=== PATIENT | female | born 1980 | race Caucasian/White ===

== ENCOUNTER 2016-06-11 05:35 | Day surgery (SDC) | payer OTHER ==
[~2016-06-11] VITALS: Ht 162.6 cm; Wt 139.7 kg
[~2016-06-11 05:35] MED LIST: DESYREL100 MG PO; EXCEDRIN EXTRA1 EACH PO; FERROUS SULFAT325 MG PO; IBUPROFEN800 MG PO; LAMICTAL25 MG PO; MEDROXYPROGESTER5 MG PO; MOTRIN600 MG PO; NOHOMEMEDS; REGLAN10 MG PO; VICODIN HP TAB1 EACH PO; celeXA PO
[2016-06-11 06:24] VITALS: BP 149/79
[2016-06-11] MEDS ORDERED: ENDOCET 5-3251 EACH PO (09:48)
[2016-06-11] MEDS ORDERED: IBUPROFEN800 MG PO (09:48)
[2016-06-11 11:21] VITALS: BP 158/81
[2016-06-11 12:25] VITALS: BP 138/82
[2016-06-11 13:18] VITALS: BP 151/86
== END 2016-06-11 13:47 | disposition home or self-care (01) ==
LOC: SDC 05:35 → 2SOUTH 15:08 → EDSTATUS 15:09 → SDC 15:10
DX: N93.9 Abnormal uterine and vaginal bleeding, unspecified (principal); N84.0 Polyp of corpus uteri; N80.0 Endometriosis of uterus; N72 Inflammatory disease of cervix uteri; F31.9 Bipolar disorder, unspecified
CPT/HCPCS: 88307; J0131; J0330; J0690; J1100; J1170; J1885; J2250; J2405; J2710; J2765; J3010